=== PATIENT | female | born 1955 | race Caucasian/White ===

== ENCOUNTER 2019-01-25 20:28 | Emergency (ER) | payer BC ==
[~2019-01-25] VITALS: Ht 170.2 cm; Wt 106.6 kg
[~2019-01-25 20:28] MED LIST: ATEN50 PO; TRAZ50 PO
[2019-01-25 21:17] LABS: BASOPHILS ABSOLUTE AUTO 0.04 K/mm3 (0.00-0.23); BASOPHILS PERCENT AUTO 1 % (0-2); EOSINOPHILS ABSOLUTE AUTO 0.16 K/mm3 (0.00-0.68); EOSINOPHILS PERCENT AUTO 2 % (0-6); Hematocrit 42.3 % (33.0-51.0); Hemoglobin 13.6 g/dL (11.5-16.0); IMMATURE GRAN ABSOLUTE AUTO 0.02 K/mm3 (0.00-0.10); IMMATURE GRAN PERCENT AUTO 0 % (0-1); LYMPHOCYTES ABSOLUTE AUTO 2.17 K/mm3 (0.84-5.20); LYMPHOCYTES PERCENT AUTO 26 % (21-46); MONOCYTES ABSOLUTE AUTO 0.46 K/mm3 (0.16-1.47); MONOCYTES PERCENT AUTO 5 % (4-13); Mean Corpuscular HGB 28.3 pg (26.0-34.0); Mean Corpuscular HGB Conc 32.2 g/dL (31.5-36.5); Mean Corpuscular Volume 88 fL (80-100); Mean Platelet Volume 9.9 fL (9.1-12.4); NEUTROPHILS ABSOLUTE AUTO 5.62 K/mm3 (1.96-9.15); NEUTROPHILS PERCENT AUTO 66 % (41-73); Platelet Count 279 K/mm3 (150-400); RDW Coefficient Variation 13.5 % (11.7-14.2); RDW Standard Deviation 43.9 fL (35.1-46.3); White Blood Cell Count 8.47 K/mm3 (4.00-11.30)
[2019-01-25 21:36] LABS: Alanine Aminotransfer (ALT/SGP 41 U/L (12-78); Albumin, Blood 3.8 g/dL (3.4-5.0); Albumin/Globulin Ratio 0.9 (0.8-1.8); Alk Phos 60 U/L (50-136); Anion Gap 5 mmol/L (6-16); Aspartate Aminotrans (AST/SGOT 34 U/L (12-37); Bilirubin, Total 0.4 mg/dL (0.1-1.0); Blood Urea Nitrogen 17 mg/dL (8-24); Bun/Creatinine Ratio 23.8 (12.0-20.0); CO2, Blood 29 mmol/L (21-32); Calcium, Blood 8.6 mg/dL (8.5-10.1); Chloride, Blood 107 mmol/L (98-108); Creatinine, Blood 0.71 mg/dL (0.40-1.00); Globulin, Blood 4.1 g/dL (2.2-4.0); Glomerular Filtration Rate >60 (60-); Glucose, Blood 180 mg/dL (70-99); Potassium, Blood 3.8 mmol/L (3.5-5.5); Sodium, Blood 141 mmol/L (136-145); Total Protein, Blood 7.9 g/dL (6.4-8.2); Troponin I <0.015 ng/mL (0.000-0.040)
[2019-01-25] MEDS ORDERED: ATEN25 PO (23:02)
[2019-01-26] MEDS ORDERED: Protonix40 MG PO (00:54)
== END 2019-01-26 01:03 | disposition home or self-care (01) ==
LOC: ER 20:28
PROVIDERS: Physician Assistant
DX: R07.9 Chest pain, unspecified (principal); Z88.0 Allergy status to penicillin; Z79.899 Other long term (current) drug therapy; K21.9 Gastro-esophageal reflux disease without esophagitis
CPT/HCPCS: 36415; 71046; 80053; 84484; 85025; 93005; 93010; 99284-25

== ENCOUNTER → 2019-01-28 | Outpatient (CLI) | payer BC ==
[~2019-01-28] MED LIST changes: +ATEN25 PO; +Protonix40 MG PO
[2019-01-28 16:45] LABS: CHOL/HDL RATIO 2.5; Cholesterol 178 mg/dL (50-200); HDL Cholesterol 70 mg/dL (>39); LDL/HDL RATIO 1.2; Low Density Lipoprotein Chol 83 mg/dL (0-110); Triglycerides 126 mg/dL (30-160); Very Low Density Lipoprot Chol 25 mg/dL (6-32)
== END | disposition home or self-care (01) ==
LOC: LAB SHORT 15:11 → LAB 15:11
PROVIDERS: Hospitalist
DX: I10 Essential (primary) hypertension (principal); R73.9 Hyperglycemia, unspecified
CPT/HCPCS: 80061; 83036

== ENCOUNTER → 2020-03-20 | Outpatient (CLI) | payer BC ==
[2020-03-21 17:26] LABS: SOURCE: CERVIX; TEST ORDERED: PAP LIQ-BASED
== END | disposition home or self-care (01) ==
LOC: LAB SHORT 14:05 → LAB 14:05
PROVIDERS: Hospitalist
DX: Z12.4 Encounter for screening for malignant neoplasm of cervix (principal)
CPT/HCPCS: G0145

== ENCOUNTER 2021-05-02 10:35 | Day surgery (SDC) | payer BC ==
[~2021-05-02] VITALS: Ht 170.2 cm; Wt 107.3 kg
[~2021-05-02 10:35] MED LIST changes: +Aspir 8181 MG; +LORA.5; +TRAZ50
== END 2021-05-02 13:16 | disposition home or self-care (01) ==
LOC: ORSCSDS 10:35
PROVIDERS: Student in an Organized Health Care Education/Training Program
PROC: 0DBN8ZX Excision of Sigmoid Colon, Via Natural or Artificial Opening Endoscopic, Diagnostic (ICD-10-PCS; principal; 2021-05-02 12:00)
PROC: 0DBL8ZX Excision of Transverse Colon, Via Natural or Artificial Opening Endoscopic, Diagnostic (ICD-10-PCS; principal; 2021-05-02 12:00)
DX: Z12.11 Encounter for screening for malignant neoplasm of colon (principal); D12.5 Benign neoplasm of sigmoid colon; D12.3 Benign neoplasm of transverse colon; I10 Essential (primary) hypertension; K64.4 Residual hemorrhoidal skin tags; K57.30 Diverticulosis of large intestine without perforation or abscess without bleeding; Z79.899 Other long term (current) drug therapy
CPT/HCPCS: 88305; J2704; J7120

== ENCOUNTER → 2023-04-08 | Outpatient (CLI) | payer MEDICARE ==
[2023-04-08 17:16] LABS: Microalb/Creat Ratio UR, Rand 8.865 mg/g (0.000-30.000); Microalbumin, Random Urine 12.5 mg/L (0.000-20.000)
== END | disposition home or self-care (01) ==
LOC: LAB 15:18 → LAB SHORT 15:18
PROVIDERS: Family Medicine
DX: E11.9 Type 2 diabetes mellitus without complications (principal)
CPT/HCPCS: 82043; 82570